=== PATIENT | male | born 1960 | race Caucasian/White ===

== ENCOUNTER 2018-06-05 00:45 | Inpatient (IN) | payer MEDICARE, OTHER ==
[~2018-06-05] VITALS: Ht 175.3 cm; Wt 122.7 kg
[2018-06-05] VITALS (25 sets, daily range): BP systolic 62–163; BP diastolic 40–88
[~2018-06-05 00:45] MED LIST: ALPR-624 PO; HYDR-3965 PO; NAP220T PO
[2018-06-05] MEDS ORDERED: ondansetron/PF 4mg/2ml inj IV ONE (00:50)
[2018-06-05] MEDS ORDERED: normal saline 1000ML IV soln IVB ONE (00:50)
[2018-06-05 01:30] LABS: CLARITY,URINE CLEAR (Clear); COLOR,URINE AMBER (Yellow); GLUCOSE, URINE NEGATIVE (Neg); KETONES,URINE 40 mg/dl (Neg); LEUKOCYTE ESTERASE ,URINE NEGATIVE (Neg); NITRITES, URINE NEGATIVE (Neg); OCCULT BLOOD,URINE MODERATE (Neg); PROTEIN,URINE 100 mg/dl (Neg); UA COLLECTION TYPE CLN CATCH MIDSTREAM
[2018-06-05 01:35] LABS: BASOPHILS % (AUTO) 0.4 % (0-1); EOSINOPHILS % (AUTO) 0.1 % (0-6); HEMATOCRIT 41.9 % (42.0-52.0); HEMOGLOBIN 13.1 g/dl (14.0-17.9); LYMPHOCYTES # (AUTO) 0.6 X10'3 (1.1-4.8); LYMPHOCYTES % (AUTO) 14.4 % (21-51); MEAN CORPUSCULAR HEMOGLOBIN 28.6 PG (27.0-31.0); MEAN CORPUSCULAR HGB CONC 31.3 % (33.0-36.5); MEAN CORPUSCULAR VOLUME 91.2 FL (78-98); MEAN PLATELET VOLUME 8.5 FL (7.4-10.4); MONOCYTES # (AUTO) 0.7 X10'3 (0-0.9); MONOCYTES % (AUTO) 15.4 % (2-12); NEUTROPHILS # (AUTO) 3.1 X10'3 (1.8-7.7); NEUTROPHILS % (AUTO) 69.7 % (42-75); PLATELET COUNT 53 X10'3 (140-440); RED BLOOD COUNT 4.59 X10'6 (4.70-6.10); RED CELL DISTRIBUTION WIDTH 20.1 % (11.5-14.5); WHITE BLOOD COUNT 4.4 X10'3 (4.5-11.0)
[2018-06-05 01:38] LABS: FINE GRANULAR CAST 0-3 /LPF (NEGATIVE); HYALINE CASTS 0-3 /LPF (NEGATIVE); MUCUS STRANDS FEW /LPF (Neg); SQUAMOUS EPITHELIAL CELL,UR FEW /LPF (FEW)
[2018-06-05 01:39] LABS: BACTERIA,URINE 1+ /HPF (Neg)
[2018-06-05 01:40] LABS: AMORPHOUS URATES 1+; TRANSITIONAL EPI CELLS,URINE FEW /HPF; WBC,URINE 0-4 /HPF (0-4)
[2018-06-05 01:40] LABS: ALANINE AMINOTRANSFERASE 403 U/L (12-78); ALBUMIN 3.9 G/DL (3.4-5.0); ALKALINE PHOSPHATASE 123 IU/L (46-116); ANION GAP 23 (8-16); BILIRUBIN,TOTAL 5.4 MG/DL (0.1-1.0); BLOOD UREA NITROGEN 14 MG/DL (7-18); BUN/CREATININE RATIO 14.4 (5.4-32.0); CALCIUM 9.1 MG/DL (8.5-10.1); CHLORIDE 96 MMOL/L (99-107); CREATININE 0.97 MG/DL (0.60-1.10); GLUCOSE 149 MG/DL (70-104); LIPASE 754 U/L (73-393); SODIUM 140 MMOL/L (135-145); TOTAL CARBON DIOXIDE 21.4 MMOL/L (24-32); eGFR 80 ML/MIN
[2018-06-05 01:58] LABS: ASPARTATE AMINO TRANSFERASE 12 U/L (10-37)
[2018-06-05 01:59] LABS: ALBUMIN/GLOBULIN RATIO 0.9 (1.1-1.5); POTASSIUM 3.6 MMOL/L (3.5-5.1); TOTAL PROTEIN 8.2 G/DL (6.4-8.2)
[2018-06-05] MEDS ORDERED: iohexol 300mg/ml 100ml inj. ONE (02:07)
[2018-06-05 02:20] LABS: NUCLEATED RED BLOOD CELLS 2 /100WBC (0-0); TOTAL CELLS COUNTED 100
[2018-06-05 02:21] LABS: HYPOCHROMASIA 1+
[2018-06-05 02:22] LABS: ANISOCYTOSIS 2+; PLATELET ESTIMATE DECREASED
[2018-06-05] MEDS ORDERED: piperacillin/tazo 3.375gm/50ml 50 ML IV STA (05:05)
[2018-06-05] MEDS ORDERED: AMOX-580 PO (05:06)
[2018-06-05] MEDS ORDERED: pantoprazole 40 MG vial IV ONE (05:10)
[2018-06-05] MEDS ORDERED: pantoprazole 40MG/NS 100ML BAG 100 ML IV ONE (05:10)
[2018-06-05] MEDS ORDERED: ONDA4TAB9 PO (05:22)
[2018-06-05] MEDS ORDERED: CYCL-394 PO (05:22)
[2018-06-05] MEDS ORDERED: QUET25TA PO (05:22)
[2018-06-05] MEDS ORDERED: PANT-47 PO (05:22)
[2018-06-05] MEDS ORDERED: BUSP10TA11 PO (05:22)
[2018-06-05] MEDS ORDERED: LORazepam 2 mg/ml vial IV ONE (05:35)
[2018-06-05] MEDS ORDERED: tranexamic acid inj. 1,000 MG in normal saline 100ml IV soln 90 ML IV ONE (05:40)
[2018-06-05] MEDS ORDERED: octreotide inj. 1,250 MCG in normal saline 250ml IV soln 250 ML IV ONE (05:40)
[2018-06-05] MEDS ORDERED: octreotide 100mcg/1 ml ampule IV ONE (05:40)
[2018-06-05] MEDS ORDERED: LORazepam 2 mg/ml vial IV STA (05:51)
[2018-06-05] MEDS ORDERED: magnesium 1gm/100ml D5W IVPB 100 ML IV PRN (05:55)
[2018-06-05] MEDS ORDERED: ondansetron/PF 4mg/2ml inj IV PRN (05:55)
[2018-06-05] MEDS ORDERED: magnesium 4gm in 100ml NS 100 ML IV PRN (05:55)
[2018-06-05] MEDS ORDERED: potassium Cl 20 mEq SR tablet PO PRN ×2 (05:55)
[2018-06-05] MEDS ORDERED: ipratropium/albuterol 3ml nebule NEB PRN ×2 (05:55→18:30)
[2018-06-05] MEDS ORDERED: bisacodyl 10mg suppository rectal RC PRN (05:55)
[2018-06-05] MEDS ORDERED: potassium Cl 40MEQ/NS 500ml 500 ML IV PRN ×2 (05:55)
[2018-06-05] MEDS ORDERED: acetaminophen 650mg rectal suppository RC PRN (05:55)
[2018-06-05] MEDS ORDERED: thiamine inj. 100 MG in normal saline 100ml IV soln 100 ML IV ONE ×5 (05:55→06:00)
[2018-06-05] MEDS ORDERED: haloperidol lactate 5mg/ml inj IM PRN (06:00)
[2018-06-05] MEDS ORDERED: LORazepam 2 mg/ml vial IV PRN (06:00)
[2018-06-05 06:41] LABS: URINE AMPHETAMINE SCREEN NEGATIVE (Neg); URINE BARBITUATE SCREEN NEGATIVE (Neg); URINE BENZODIAZEPINES SCREEN POSITIVE (Neg); URINE CANNABINOID SCREEN POSITIVE (Neg); URINE COCAINE SCREEN NEGATIVE (Neg); URINE METHADONE SCREEN NEGATIVE (Neg); URINE OPIATE SCREEN POSITIVE (Neg); URINE PHENCYCLIDINE SCREEN NEGATIVE (Neg)
[2018-06-05 07:08] LABS: BASOPHILS % (AUTO) 0 % (0-1); EOSINOPHILS % (AUTO) 0.7 % (0-6); HEMATOCRIT 35.8 % (42.0-52.0); LYMPHOCYTES # (AUTO) 0.6 X10'3 (1.1-4.8); LYMPHOCYTES % (AUTO) 11.6 % (21-51); MEAN CORPUSCULAR HEMOGLOBIN 30.1 PG (27.0-31.0); MEAN CORPUSCULAR HGB CONC 33.5 % (33.0-36.5); MEAN CORPUSCULAR VOLUME 89.9 FL (78-98); MEAN PLATELET VOLUME 8.4 FL (7.4-10.4); MONOCYTES # (AUTO) 0.8 X10'3 (0-0.9); MONOCYTES % (AUTO) 13.6 % (2-12); NEUTROPHILS # (AUTO) 4.1 X10'3 (1.8-7.7); NEUTROPHILS % (AUTO) 74.1 % (42-75); RED BLOOD COUNT 3.98 X10'6 (4.70-6.10); RED CELL DISTRIBUTION WIDTH 21.7 % (11.5-14.5); WHITE BLOOD COUNT 5.5 X10'3 (4.5-11.0)
[2018-06-05 07:16] LABS: PLATELET COUNT 48 X10'3 (140-440)
[2018-06-05 07:21] LABS: INR 1.2 INR; PROTHROMBIN TIME 12.1 SECONDS (9.0-12.0)
[2018-06-05 07:24] LABS: ANISOCYTOSIS 3+; PLATELET ESTIMATE DECREASED
[2018-06-05 07:25] LABS: LARGE PLATELETS FEW
[2018-06-05] MEDS ORDERED: fentaNYL/PF 50MCG/1 ML 2ML syringe ONE (07:45)
[2018-06-05] MEDS ORDERED: MIDAZolam 5mg/5ml vial ONE (07:46)
[2018-06-05] MEDS ORDERED: LIDOcaine Viscous 15ml cup ONE (07:46)
[2018-06-05] MEDS ORDERED: folic acid inj. 2 MG, thiamine inj. 100 MG, MVI, adult No.4 with vit. K 10 ML in dextro... IV SCH ×12 (08:00)
[2018-06-05] MEDS: K and/or MAG REPLACEMENT MC SCH (08:00)
[2018-06-05] MEDS ORDERED: etomidate 2mg/ml inj. ONE (09:00)
[2018-06-05] MEDS ORDERED: 0.9 % SODIUM CHLORIDE 10 ML VIAL ONE (09:00)
[2018-06-05] MEDS ORDERED: LIDOcaine Viscous 15ml cup PO ONE (10:20)
[2018-06-05] MEDS ORDERED: MIDAZolam 5mg/5ml vial IV PRN (10:20)
[2018-06-05] MEDS ORDERED: fentaNYL/PF 50MCG/1 ML 2ML syringe IV PRN ×2 (10:20→18:30)
[2018-06-05] MEDS ORDERED: simethicone 40mg/0.6ml oral drops 30ml MC ONE (10:20)
[2018-06-05] MEDS: pantoprazole 40MG/NS 100ML BAG 100 ML IV SCH ×4 (11:00→22:04)
[2018-06-05 13:28] LABS: BASOPHILS % (AUTO) 0 % (0-1); EOSINOPHILS % (AUTO) 0.1 % (0-6); HEMATOCRIT 31.7 % (42.0-52.0); HEMOGLOBIN 10.5 g/dl (14.0-17.9); LYMPHOCYTES # (AUTO) 0.7 X10'3 (1.1-4.8); LYMPHOCYTES % (AUTO) 13.4 % (21-51); MEAN CORPUSCULAR HEMOGLOBIN 29.9 PG (27.0-31.0); MEAN CORPUSCULAR VOLUME 90.6 FL (78-98); MEAN PLATELET VOLUME 7.7 FL (7.4-10.4); MONOCYTES % (AUTO) 18.5 % (2-12); NEUTROPHILS # (AUTO) 3.6 X10'3 (1.8-7.7); PLATELET COUNT 58 X10'3 (140-440); RED CELL DISTRIBUTION WIDTH 21.1 % (11.5-14.5); WHITE BLOOD COUNT 5.3 X10'3 (4.5-11.0)
[2018-06-05 13:52] LABS: ANISOCYTOSIS 3+; PLATELET ESTIMATE DECREASED; TOTAL CELLS COUNTED 100
[2018-06-05 13:53] LABS: POLYCHROMASIA 1+
[2018-06-05] MEDS: LORazepam 2 mg/ml vial IV PRN ×2 (15:18→16:38)
[2018-06-05] MEDS: folic acid inj. 2 MG, thiamine inj. 100 MG, MVI, adult No.4 with vit. K 10 ML in dextro... IV SCH ×4 (15:19)
[2018-06-05] MEDS ORDERED: MIDAZolam 5mg/ml 2ml vial ONE ×3 (17:09→17:35)
[2018-06-05] MEDS ORDERED: NORepinephrine 8mg/ 250ml NS 250 ML IV ONE (17:16)
[2018-06-05] MEDS ORDERED: midazolam 2 mg/2 ml injection IV ONE (18:30)
[2018-06-05] MEDS ORDERED: normal saline 1000ml 1,000 ML IVB ONE (19:02)
[2018-06-05 19:16] LABS: ABG BASE EXCESS -10.2 mmol/L (-2.0-3.0); ABG HCO3 14.6 mmol/L (22.0-26.0); ABG OXYGEN SATURATION 98.5 % (95-98); ABG PCO2 (T) 29.6 mmHg (35.0-48.0); ABG PH (T) 7.313 (7.350-7.450); ABG PO2 (T) 149.9 mmHg (83-108); ALLEN'S TEST Positive; FCOHb 0.3 % (0.5-1.5); FMetHb 0.2 % (0.3-1.12); MINUTE VOLUME 15 L/min; PATIENT TEMPERATURE 37.9; PEEP 5 cm H2O; RESPIRATORY RATE 20 b/min; RESPIRATORY RATE (OBSERVED) 36 b/min; TIDAL VOLUME 400 mL; TOTAL HEMOGLOBIN 9.5 G/dl (14.0-18.0)
[2018-06-05] MEDS: ipratropium/albuterol 3ml nebule NEB SCH ×2 (19:18→22:49)
[2018-06-05] MEDS: midazolam 100mg in NS 100ml 100 ML IV PRN (19:42)
[2018-06-05] MEDS: FENTANYL-0.9 % NACL/PF 100 ML IV PRN (19:43)
[2018-06-05 19:45] LABS: HEMATOCRIT 26.4 % (42.0-52.0); HEMOGLOBIN 8.6 g/dl (14.0-17.9); MEAN CORPUSCULAR HEMOGLOBIN 29.6 PG (27.0-31.0); MEAN CORPUSCULAR HGB CONC 32.5 % (33.0-36.5); MEAN CORPUSCULAR VOLUME 91.1 FL (78-98); MEAN PLATELET VOLUME 8.3 FL (7.4-10.4); PLATELET COUNT 67 X10'3 (140-440); RED CELL DISTRIBUTION WIDTH 21.9 % (11.5-14.5); WHITE BLOOD COUNT 6.6 X10'3 (4.5-11.0)
[2018-06-06] VITALS (28 sets, daily range): BP systolic 59–124; BP diastolic 33–67
[2018-06-06] MEDS: FENTANYL-0.9 % NACL/PF 100 ML IV PRN ×2 (00:06→19:09)
[2018-06-06 01:18] LABS: BASOPHILS % (AUTO) 0.3 % (0-1); EOSINOPHILS % (AUTO) 0.1 % (0-6); HEMATOCRIT 27.6 % (42.0-52.0); HEMOGLOBIN 8.7 g/dl (14.0-17.9); LYMPHOCYTES # (AUTO) 1.2 X10'3 (1.1-4.8); LYMPHOCYTES % (AUTO) 15.1 % (21-51); MEAN CORPUSCULAR HEMOGLOBIN 29.7 PG (27.0-31.0); MEAN CORPUSCULAR HGB CONC 31.5 % (33.0-36.5); MEAN CORPUSCULAR VOLUME 94.6 FL (78-98); MEAN PLATELET VOLUME 8.9 FL (7.4-10.4); NEUTROPHILS # (AUTO) 5.8 X10'3 (1.8-7.7); NEUTROPHILS % (AUTO) 71.5 % (42-75); PLATELET COUNT 75 X10'3 (140-440); RED BLOOD COUNT 2.92 X10'6 (4.70-6.10); RED CELL DISTRIBUTION WIDTH 20.9 % (11.5-14.5)
[2018-06-06] MEDS: pantoprazole 40MG/NS 100ML BAG 100 ML IV SCH ×5 (01:18→21:00)
[2018-06-06 01:23] LABS: INR 1.6 INR; PROTHROMBIN TIME 16.1 SECONDS (9.0-12.0)
[2018-06-06 01:32] LABS: ALANINE AMINOTRANSFERASE 538 U/L (12-78); ALBUMIN 3.1 G/DL (3.4-5.0); ALKALINE PHOSPHATASE 85 IU/L (46-116); AMYLASE 59 U/L (25-115); ANION GAP 27 (8-16); BLOOD UREA NITROGEN 22 MG/DL (7-18); BUN/CREATININE RATIO 10.1 (5.4-32.0); CALCIUM 8.1 MG/DL (8.5-10.1); CHLORIDE 100 MMOL/L (99-107); CREATININE 2.17 MG/DL (0.60-1.10); GLUCOSE 72 MG/DL (70-104); LIPASE 568 U/L (73-393); SODIUM 142 MMOL/L (135-145); eGFR 32 ML/MIN
[2018-06-06 01:39] LABS: POTASSIUM 4.8 MMOL/L (3.5-5.1)
[2018-06-06 01:54] LABS: ALBUMIN/GLOBULIN RATIO 0.9 (1.1-1.5); PHOSPHORUS 4.7 MG/DL (2.3-4.5); TOTAL PROTEIN 6.5 G/DL (6.4-8.2)
[2018-06-06 02:04] LABS: TOTAL CARBON DIOXIDE 14.7 MMOL/L (24-32)
[2018-06-06 02:05] LABS: ASPARTATE AMINO TRANSFERASE 3269 U/L (10-37)
[2018-06-06] MEDS ORDERED: normal saline 1000ml 1,000 ML IV ONE (02:25)
[2018-06-06] MEDS: ipratropium/albuterol 3ml nebule NEB SCH ×5 (03:14→19:07)
[2018-06-06] MEDS ORDERED: vasopressin inj. 60 UNIT in normal saline 100ml IV soln 97 ML IV SCH (03:25)
[2018-06-06] MEDS ORDERED: sodium bicarbonate (8.4%) 1 mEq/ml syringe IV ONE (03:25)
[2018-06-06] MEDS: midazolam 100mg in NS 100ml 100 ML IV PRN (04:41)
[2018-06-06 04:56] LABS: ABG BASE EXCESS -15.6 mmol/L (-2.0-3.0); ABG HCO3 10.6 mmol/L (22.0-26.0); ABG OXYGEN SATURATION 93.9 % (95-98); ABG PCO2 (T) 27.1 mmHg (35.0-48.0); ABG PH (T) 7.215 (7.350-7.450); ALLEN'S TEST Positive; FMetHb 0.3 % (0.3-1.12); FO2Hb 93.6 % (94-100); MINUTE VOLUME 14 L/min; PATIENT TEMPERATURE 37.4; PEEP 5 cm H2O; RESPIRATORY RATE 12 b/min; RESPIRATORY RATE (OBSERVED) 35 b/min; TIDAL VOLUME 400 mL; TOTAL HEMOGLOBIN 9.4 G/dl (14.0-18.0)
[2018-06-06] MEDS ORDERED: albumin (Human) 5% 250ml 500 ML IV ONE (05:22)
[2018-06-06] MEDS ORDERED: hydrocortisone sod succ/PF 100mg/2ml inj. IV SCH (05:30)
[2018-06-06] MEDS ORDERED: NORepinephrine 8mg/ 250ml NS 250 ML IV ONE ×2 (05:44→11:06)
[2018-06-06] MEDS ORDERED: vancomycin/NS 1 GM ADD-VANTAGE 250 ML IV ONE (06:10)
[2018-06-06 07:21] LABS: BASOPHILS % (AUTO) 0.2 % (0-1); EOSINOPHILS % (AUTO) 0 % (0-6); HEMATOCRIT 23.7 % (42.0-52.0); HEMOGLOBIN 7.7 g/dl (14.0-17.9); LYMPHOCYTES # (AUTO) 0.8 X10'3 (1.1-4.8); LYMPHOCYTES % (AUTO) 11.3 % (21-51); MEAN CORPUSCULAR HEMOGLOBIN 30.6 PG (27.0-31.0); MEAN CORPUSCULAR HGB CONC 32.4 % (33.0-36.5); MEAN CORPUSCULAR VOLUME 94.6 FL (78-98); MEAN PLATELET VOLUME 8.8 FL (7.4-10.4); MONOCYTES # (AUTO) 1.1 X10'3 (0-0.9); NEUTROPHILS # (AUTO) 5.2 X10'3 (1.8-7.7); NEUTROPHILS % (AUTO) 73.5 % (42-75); PLATELET COUNT 61 X10'3 (140-440); RED CELL DISTRIBUTION WIDTH 22.8 % (11.5-14.5); WHITE BLOOD COUNT 7.1 X10'3 (4.5-11.0)
[2018-06-06 07:46] LABS: ANISOCYTOSIS 3+; MICROCYTOSIS 1+; PLATELET ESTIMATE DECREASED; POLYCHROMASIA 1+
[2018-06-06 07:49] LABS: ALANINE AMINOTRANSFERASE 584 U/L (12-78); ALBUMIN 3.3 G/DL (3.4-5.0); ALKALINE PHOSPHATASE 81 IU/L (46-116); ANION GAP 31 (8-16); BILIRUBIN,TOTAL 9.1 MG/DL (0.1-1.0); BLOOD UREA NITROGEN 22 MG/DL (7-18); BUN/CREATININE RATIO 7.9 (5.4-32.0); CALCIUM 7.9 MG/DL (8.5-10.1); CHLORIDE 101 MMOL/L (99-107); SODIUM 144 MMOL/L (135-145); eGFR 24 ML/MIN
[2018-06-06 07:53] LABS: GLUCOSE 17 MG/DL (70-104)
[2018-06-06 07:54] LABS: TOTAL CARBON DIOXIDE 12.3 MMOL/L (24-32)
[2018-06-06 07:57] LABS: ALBUMIN/GLOBULIN RATIO 1.3 (1.1-1.5); POTASSIUM 5.8 MMOL/L (3.5-5.1); TOTAL PROTEIN 5.8 G/DL (6.4-8.2)
[2018-06-06] MEDS ORDERED: dextrose 50%-water 50ml dispensing syringe IV ONE ×3 (07:57→19:41)
[2018-06-06] MEDS: folic acid inj. 2 MG, thiamine inj. 100 MG, MVI, adult No.4 with vit. K 10 ML in dextro... IV SCH ×4 (08:11)
[2018-06-06] MEDS: K and/or MAG REPLACEMENT MC SCH (08:25)
[2018-06-06 08:26] LABS: ASPARTATE AMINO TRANSFERASE 3500 U/L (10-37)
[2018-06-06] MEDS ORDERED: normal saline 1000ml 1,000 ML IVB ONE (09:57)
[2018-06-06 10:36] LABS: OXYGEN SATURATION (MIXED VEN) 75.8 % (60-80); PO2 MIXED VENOUS (TEMP COR) 57.6 mmHg (35-46)
[2018-06-06] MEDS: piperacillin/tazo 3.375gm/50ml 50 ML IV SCH ×3 (10:43→19:35)
[2018-06-06] MEDS: normal saline 1000ml 1,000 ML IV SCH ×3 (10:52→18:44)
[2018-06-06] MEDS: NORepinephrine 8mg/ 250ml NS 250 ML IV SCH ×2 (11:55→19:10)
[2018-06-06 13:22] LABS: HEMATOCRIT 26.1 % (42.0-52.0); HEMOGLOBIN 8.3 g/dl (14.0-17.9); MEAN CORPUSCULAR HEMOGLOBIN 30.4 PG (27.0-31.0); MEAN CORPUSCULAR VOLUME 94.9 FL (78-98); MEAN PLATELET VOLUME 8.6 FL (7.4-10.4); RED BLOOD COUNT 2.74 X10'6 (4.70-6.10); RED CELL DISTRIBUTION WIDTH 22.4 % (11.5-14.5); WHITE BLOOD COUNT 8.9 X10'3 (4.5-11.0)
[2018-06-06 13:37] LABS: PLATELET COUNT 48 X10'3 (140-440)
[2018-06-06 16:01] LABS: BASOPHILS % (AUTO) 0.1 % (0-1); EOSINOPHILS % (AUTO) 0 % (0-6); HEMATOCRIT 24.7 % (42.0-52.0); HEMOGLOBIN 7.9 g/dl (14.0-17.9); LYMPHOCYTES # (AUTO) 0.8 X10'3 (1.1-4.8); LYMPHOCYTES % (AUTO) 9.1 % (21-51); MEAN CORPUSCULAR HGB CONC 31.9 % (33.0-36.5); MEAN CORPUSCULAR VOLUME 94.2 FL (78-98); MEAN PLATELET VOLUME 8.3 FL (7.4-10.4); MONOCYTES # (AUTO) 1.1 X10'3 (0-0.9); MONOCYTES % (AUTO) 11.8 % (2-12); NEUTROPHILS # (AUTO) 7.1 X10'3 (1.8-7.7); RED BLOOD COUNT 2.62 X10'6 (4.70-6.10); RED CELL DISTRIBUTION WIDTH 22.7 % (11.5-14.5)
[2018-06-06 16:21] LABS: NUCLEATED RED BLOOD CELLS 2 /100WBC (0-0); TOTAL CELLS COUNTED 100; TOXIC VACUOLATION 3+
[2018-06-06 16:22] LABS: PLATELET ESTIMATE DECREASED; TOXIC GRANULATION 2+
[2018-06-06 16:23] LABS: BURR CELLS 5; POLYCHROMASIA FEW
[2018-06-06 16:27] LABS: PLATELET COUNT 48 X10'3 (140-440)
[2018-06-06] MEDS ORDERED: octreotide inj. 1,250 MCG in normal saline 250ml IV soln 250 ML IV SCH (16:40)
[2018-06-06] MEDS ORDERED: lactobacillus rhamnosus 10,000 MMU CELLS/CAPSULE PO SCH (20:00)
[2018-06-06] MEDS ORDERED: mineral oil/petrolatum ophthal oint EACHEYE SCH (20:00)
[2018-06-06] MEDS ORDERED: albumin (human) 25% 100 ML IV solution IV SCH (20:00)
[2018-06-09] MEDS ORDERED: VANCOMYCIN LEVEL IV ONE (06:30)
== END 2018-06-06 20:27 | disposition expired | DRG 432 ==
LOC: ER 00:46 → ED HOLD 05:51 → EDBEDREQ 06:39 → SUR 3N 07:10 → ICU 2S 17:02
PROVIDERS: ADMIT Family Medicine; ATTEND Internal Medicine Gastroenterology
PROC: 5A1945Z Respiratory Ventilation, 24-96 Consecutive Hours (ICD-10-PCS; principal; 2018-06-05)
PROC: 0BH17EZ Insertion of Endotracheal Airway into Trachea, Via Natural or Artificial Opening (ICD-10-PCS; 2018-06-05)
PROC: 30233L1 Transfusion of Nonautologous Fresh Plasma into Peripheral Vein, Percutaneous Approach (ICD-10-PCS; 2018-06-05)
PROC: 30233K1 Transfusion of Nonautologous Frozen Plasma into Peripheral Vein, Percutaneous Approach (ICD-10-PCS; 2018-06-05)
PROC: 30233R1 Transfusion of Nonautologous Platelets into Peripheral Vein, Percutaneous Approach (ICD-10-PCS; 2018-06-05)
PROC: BW211ZZ Computerized Tomography (CT Scan) of Abdomen and Pelvis using Low Osmolar Contrast (ICD-10-PCS; 2018-06-05)
PROC: 0DJ08ZZ Inspection of Upper Intestinal Tract, Via Natural or Artificial Opening Endoscopic (ICD-10-PCS; 2018-06-05)
PROC: 02H633Z Insertion of Infusion Device into Right Atrium, Percutaneous Approach (ICD-10-PCS; 2018-06-05)
PROC: 30233N1 Transfusion of Nonautologous Red Blood Cells into Peripheral Vein, Percutaneous Approach (ICD-10-PCS; 2018-06-06)
DX: K74.60 Unspecified cirrhosis of liver (principal); I85.01 Esophageal varices with bleeding; J96.00 Acute respiratory failure, unspecified whether with hypoxia or hypercapnia; R57.9 Shock, unspecified; E87.2 Acidosis; F10.239 Alcohol dependence with withdrawal, unspecified; N17.9 Acute kidney failure, unspecified; E27.9 Disorder of adrenal gland, unspecified; D69.6 Thrombocytopenia, unspecified; I10 Essential (primary) hypertension; K72.90 Hepatic failure, unspecified without coma; F41.9 Anxiety disorder, unspecified; G89.29 Other chronic pain; M54.9 Dorsalgia, unspecified; F12.90 Cannabis use, unspecified, uncomplicated; F17.210 Nicotine dependence, cigarettes, uncomplicated; W01.0XXA Fall on same level from slipping, tripping and stumbling without subsequent striking against object, initial encounter; Z66 Do not resuscitate; Z79.899 Other long term (current) drug therapy; Z83.3 Family history of diabetes mellitus; Y93.89 Activity, other specified; Y92.89 Other specified places as the place of occurrence of the external cause; Y99.8 Other external cause status
CPT/HCPCS: 36415; 36600; 71045; 74177; 80053; 80305; 80320; 81001; 82150; 82803; 82810; 82948; 83605; 83690; 83735; 84100; 84145; 85018; 85025; 85027; 85610; 86885; 86900; 86901; 86920; 87040; 87070; 93005; 94002; 94003; 94640; 94667; 94760; A4620; A6213; A7015; C1751; C1758; C9113; G0500; J1630; J1720; J2060; J2250; J2354; J2405; J2543; J3010; J3370; J3411; J3490; J7030; J7060; P9016; P9035; P9045; P9047; P9059; Q9967